=== PATIENT | male | born 1960 | race Caucasian/White ===

== ENCOUNTER 2018-03-14 09:35 | Emergency (ER) | payer MEDICARE, MEDICAID ==
[2018-03-14 09:58] LABS: #Basophils 0.1 thou/uL (0.0-0.2); #Eosinphils 0.3 thou/uL (0.0-0.7); #Lymphocytes 2.6 thou/uL (1.20-3.40); #Monocytes 0.6 thou/uL (0.11-0.59); #Neutrophils 4.8 thou/uL (1.40-6.50); %Basophils 1.4 % (0.0-1.0); %Lymphocytes 31.3 % (21.0-51.0); %Monocytes 7.3 % (0.0-10.0); Hemoglobin 16.8 g/dL (14.0-18.0); Mean Corpuscular Hemoglobin 27.8 pg (27.0-31.0); Mean Corpuscular Volume 84.3 fL (78.0-98.0); Mean Platelet Volume 6.5 fL (7.4-10.4); Platelet Count 239 thou/uL (130-400); RBC Distribution Width 12.1 % (11.5-14.5); Red Blood Cell (RBC) Count 6.04 mill/uL (4.70-6.10); White Blood Cell (WBC) Count 8.4 thou/uL (4.8-10.8)
[2018-03-14 10:11] LABS: ALT (SGPT) 44 U/L (8-55); AST (SGOT) 24 U/L (5-34); Albumin 4.6 g/dL (3.5-5.0); Alkaline Phosphatase 35 U/L (40-150); Anion Gap 14 mmol/L (10-20); BUN (Urea Nitrogen) 12 mg/dL (8.4-25.7); Bilirubin, Total 1.5 mg/dL (0.2-1.2); CK (CPK) 256 U/L (30-200); Calc. Creatinine Clearance 0 mL/min (70-130); Calcium 9.6 mg/dL (7.8-10.44); Carbon Dioxide 24 mmol/L (22-29); Chloride 104 mmol/L (98-107); Estimated GFR-MDRD 76; Globulin 3.3 g/dL (2.4-3.5); Glucose 103 mg/dL (70-105); Potassium 3.6 mmol/L (3.5-5.1); Protein, Total 7.9 g/dL (6.0-8.3); Sodium 138 mmol/L (136-145)
[2018-03-14 10:14] LABS: CKMB 3.5 ng/mL (0-6.6); Troponin I 0.042 ng/mL (< 0.028)
--- NOTE | 2018-03-14 10:20 | RAD ---
PORTABLE CHEST: Date: 03/14/18 HISTORY: Dyspnea. COMPARISON: 09/09/16. FINDINGS: Mild cardiomegaly. Mild vascular engorgement. No focal infiltrate or significant effusion. IMPRESSION: No significant change from prior exam. POS: [facility]
[2018-03-14] MEDS ORDERED: Morphine 4 MG/ML VIAL ONE (10:34)
[2018-03-14] MEDS ORDERED: Ondansetron PF 4 MG/2 ML Vial ONE (10:35)
[2018-03-14] MEDS ORDERED: Nitroglycerin 0.4 MG TAB (25 Tab Bottle) ONE (10:41)
[2018-03-14] MEDS ORDERED: Nitroglycerin 2% Ointment 1 INCH/1 GM Packet ONE (10:41)
[2018-03-14] MEDS ORDERED: Enoxaparin Sodium 60 MG/0.6 ML SYRINGE ONE (10:42)
[2018-03-14] MEDS ORDERED: Enoxaparin Sodium 40 MG/0.4 ML SYRINGE ONE (10:42)
== END 2018-03-14 13:54 | disposition short-term general hospital (02) ==
LOC: MADERS 09:35
DX: I21.4 Non-ST elevation (NSTEMI) myocardial infarction (principal); I10 Essential (primary) hypertension; F41.9 Anxiety disorder, unspecified; Z79.899 Other long term (current) drug therapy; Z79.82 Long term (current) use of aspirin
CPT/HCPCS: 71045; 80053; 82550; 82553; 83880; 84484; 85025; 93005; 96372; 96374; 96375; J1650; J2270; J2405

== ENCOUNTER 2022-03-22 16:53 | Emergency (ER) | payer MEDICARE, MEDICAID ==
[~2022-03-22 16:53] MED LIST: Bacitracin 1 PK ONE
[2022-03-22] MEDS ORDERED: Lidocaine 1%/Epinephrine 1:100K 10 ML VIAL ONE (17:13)
== END 2022-03-22 18:18 | disposition home or self-care (01) ==
LOC: MADERS 16:53
DX: S01.01XA Laceration without foreign body of scalp, initial encounter (principal); I10 Essential (primary) hypertension; W22.8XXA Striking against or struck by other objects, initial encounter; Z79.82 Long term (current) use of aspirin; Z79.899 Other long term (current) drug therapy
CPT/HCPCS: 12002; 70450; 72125

== ENCOUNTER 2025-04-26 09:24 | Outpatient (CLI) | payer OTHER, MEDICAID ==
[2025-04-26 09:46] LABS: #Basophils 0.1 thou/uL (0.0-0.2); #Eosinophils 0.2 thou/uL (0.0-0.7); #Lymphocytes 2.2 thou/uL (1.20-3.40); #Monocytes 0.6 thou/uL (0.11-0.59); #Neutrophils 4.9 thou/uL (1.40-6.50); %Basophils 1.5 % (0.0-1.0); %Eosinophils 2.6 % (0.0-10.0); %Lymphocytes 27.8 % (21.0-51.0); %Monocytes 7.7 % (0.0-10.0); %Neutrophils 60.3 % (42.0-75.0); Hematocrit 54.9 % (42.0-52.0); Hemoglobin 17.4 g/dL (14.0-18.0); Mean Corpuscular Hemoglobin 27.3 pg (27.0-31.0); Mean Corpuscular Volume 85.8 fl (78.0-98.0); Platelet Count 200 10x3/uL (130-400); Red Blood Cell (RBC) Count 6.39 mill/uL (4.70-6.10); White Blood Cell (WBC) Count 8.1 10x3/uL (4.8-10.8)
[2025-04-26 09:57] LABS: Glucose, Urine (Dipstick) Negative (Negative); Leukocyte Negative (Negative); Protein, Urine (Dipstick) Negative (Neg-Trace); Specific Gravity, Urine 1.015 (1.005-1.030)
[2025-04-26 10:00] LABS: ALT (SGPT) 32 U/L (Less than 45); AST (SGOT) 26 U/L (11-34); Albumin 4.5 g/dL (3.1-4.5); Alkaline Phosphatase 45 U/L (40-110); Anion Gap 17 mmol/L (10-20); BUN (Urea Nitrogen) 12 mg/dL (8.4-25.7); Bilirubin, Total 1.7 mg/dL (0.3-1.2); Calc. Creatinine Clearance 0 mL/min (70-130); Calcium 9.4 mg/dL (7.8-10.44); Carbon Dioxide 24 mmol/L (23-31); Cardiac Risk 6.7 (Less than 4.5); Chloride 103 mmol/L (98-107); Cholesterol 254 mg/dl (< 200 Desired); Globulin 3.1 g/dL (2.4-3.5); Glucose 105 mg/dL (80-115); HDL Cholesterol 38 mg/dL (>60 Neg Risk); LDL Cholesterol, Calculated 163 mg/dL; Potassium 3.8 mmol/L (3.5-5.1); Sodium 140 mmol/L (136-145); Triglycerides 263 mg/dL (Less than 150)
[2025-04-26 10:06] LABS: RBC/HPF 0-3 HPF (0-3); WBC/HPF 0-3 HPF (0-3)
[2025-04-26 18:11] LABS: PSA-Asymptomatic (SCREENING) 0.78 ng/mL (0-4.0)
== END 2025-04-26 09:25 | disposition home or self-care (01) ==
LOC: MADLAB 09:24
PROVIDERS: ATTEND Family Medicine
DX: Z12.5 Encounter for screening for malignant neoplasm of prostate (principal); Z51.81 Encounter for therapeutic drug level monitoring; E78.2 Mixed hyperlipidemia; R73.03 Prediabetes; I10 Essential (primary) hypertension; Z79.899 Other long term (current) drug therapy
CPT/HCPCS: 36415; 80053; 80061; 81001; 83036; 84443; 85025; G0103